=== PATIENT | male | born 1970 ===

== ENCOUNTER 2025-05-06 09:12 | Emergency (ER) | payer OTHER, SELFPAY ==
[2025-05-06 09:17] VITALS: BP 130/81
[2025-05-06 10:38] LABS: Urine Character Clear (Clear)
--- NOTE | 2025-05-06 11:17 | ED.GENMED ---
History of Present Illness
General
Chief Complaint: Back Pain
Source: patient
Time Seen by Provider: 05/06/25 11:07
History of Present Illness
History of Present Illness:
55-year-old male with past medical history of controlled hypertension and hyperlipidemia presenting to the emergency department for evaluation of left flank pain that began yesterday with relative sudden onset, severe, nonradiating lasted
approximately 1 to 2 hours and then resolved on its own, symptoms began again this morning with similar intensity associated with nausea but no vomiting, currently only about a 2 out of 10. Patient went to local urgent care but was directed to the
ER with concern for possible renal/ureteral colic. Patient did not take anything for symptoms prior to arrival. Denies any other symptoms at this time. Denies any fevers, chills, rigors, urinary frequency/urgency/dysuria or hematuria or bowel
changes. Patient notes that he did have a normal bowel movement this morning. Social history noncontributory.
Past History
Past History
ED Past Medical History: HTN and Hypercholesterolemia
ED Past Surgical History: Appendectomy and Tonsilectomy
Social History
Tobacco: Non-smoker
Alcohol: Occasional
Drug: None
Personal:
Living: with family
Review of Systems
Review of Systems
All Other Systems: ROS reviewed and negative except as documented in HPI and ROS
Phy Exam
Physical Exam
Physical Exam:
GENERAL: Alert , in no apparent distress
EYE: clear conjunctiva b/l
HEAD: NCAT
ENT: o/p clr, mmm.
CARDIAC: Regular rate and rhythm .
LUNGS: Clear breath sounds bilaterally, no acute respiratory distress, no wheezes/rales/rhonchi
ABDOMEN: Soft, without focal tenderness, no r/g, no cvat
NEUROLOGICAL: Alert and oriented
SKIN: Warm and dry, skin intact.
MUSCULOSKELETAL: No edema, well perfused.
PSYCH: Normal and appropriate interaction.
Scores
Heart Failure Risk
Heart Failure Risk Score: Not Applicable
Heart Score for Chest Pain Patients
STEMI patient?: Not applicable
Withdrawal Assessment of Alcohol
Withdrawal Assessment Completed?: Not applicable
Course
Orders/Labs/Results
Orders:
Orders
05/06/25 10:07
UA Reflex to Culture [Urinalysis Reflex To Culture] Urgent
Date Specimen was Collected: 05/06/25
Time Specimen was Collected: 10:06
Urine Microscopic Reflex Cult Urgent
05/06/25 11:16
CT Abd/pel Without Iv Or Oral Urgent
Comment:
Reason For Exam: left flank pain
05/06/25 11:20
Complete Blood Count/With Diff Urgent
Comprehensive Metabolic Panel Urgent
Lipase Urgent
Abnormal Lab Results
05/06/25 05/06/25
10:07 11:20
MPV 10.9 H fL
(7.4-10.4)
Absolute Neuts (auto) 7.4 H 10^3/uL
(1.4-6.5)
Neutrophils % 81.1 H %
(42.2-75.2)
Lymphocytes % 13.3 L %
(20.5-51.1)
Glucose 123 H mg/dl
(70-99)
ALT 51 H U/L
(0-50)
Urine Bacteria (Reflex) Few A
(Negative)
Urine Albumin (Reflex) 1+ A
(Neg - Trace)
05/06/25 11:20
05/06/25 11:20
Vital Signs
Initial and Last Documented VS:
Initial Vital Signs
Temp Pulse Resp BP Pulse Ox
98.4 F 86 18 130/81 97
05/06/25 09:17 05/06/25 09:17 05/06/25 09:17 05/06/25 09:17 05/06/25 09:17
Last Documented Vital Signs
Temp Pulse Resp BP Pulse Ox
98.6 F 87 18 118/76 96
05/06/25 12:52 05/06/25 12:52 05/06/25 12:52 05/06/25 12:52 05/06/25 12:52
MDM/Problems Addressed
Differential Diagnosis Includes:
Renal/Ureteral colic
UTI/Pyelo
Muscular back pain
Shingles
Less concern for osteo/neurogenic claudication
MDM/Problems Addressed:
55-year-old male presenting the ER for evaluation of suspected renal/ureteral colic. Symptoms over the last 24 hours, waxing and waning, currently a 2 out of 10. Patient declining anything for symptoms at this time. Hemodynamically stable.
Urinalysis obtained on arrival, and no microscopic hematuria noted. Will check labs and CT imaging. Disposition pending.
*Radiology
Radiology exam reviewed: radiology read reviewed
*Pulse Oximetry
SaO2: 97
Oxygen Mode of Delivery: Room air
Patient hypoxic: no
*Critical Care Note
Total Time (30-74mins, 75-104mins- exclusive of procedures): Not Applicable
Patient Management
Escalation/DeEscalation of care consider admission/obs:
CT scan without any intra-abdominal or pelvic findings. Pain remains well-controlled. At this time I do think it is reasonable for patient to be discharged home and outpatient follow-up with primary care provider. Discussed return precautions to
the ER. Prescription for Percocet and naproxen sent to pharmacy. Stable for discharge
ED Attending Note
-
Portions of this chart may have been created with voice recognition software.� Occasional wrong word or��sound alike� substitutions may have occurred due to the inherent limitations of voice recognition software.
Discharge Plan
Departure
Patient Disposition: Home (Routine Discharge)
Date of Disposition: 05/06/25
Time of Disposition: 12:57
Patient with high blood pressure during this ER visit?: No
Discharge Problem:
Acute left flank pain
Instructions: Low Back Pain (DC)
Prescriptions:
New
naproxen 500 mg tablet
500 mg PO BID PRN (Reason: Pain) Qty: 10 0RF
oxycodone-acetaminophen [Percocet] 5-325 mg tablet
1 tab PO Q6HPRN PRN (Reason: pain) Qty: 10 0RF
ondansetron 4 mg tablet,disintegrating
4 mg PO TIDPRN PRN (Reason: nausea/vomiting) Qty: 10 0RF
Referrals:
Sumi Pruett MD [Family Provider, Internal Medicine]
Interventions
Interventions:
*General Assessment Last Done: 05/06/25 11:33
*Neglect/Abuse Screening Last Done: 05/06/25 11:33
*ED COVID-19 Vaccine History Last Done: 05/06/25 11:33
*ED Influenza Vaccine History Last Done: 05/06/25 11:33
[facility] Fall Risk Assessment Tool Last Done: 05/06/25 11:33
*Risk Screen - Suicide (C-SSRS) Last Done: 05/06/25 11:33
*Nursing Disposition Last Done: 05/06/25 13:09
ED-Musculoskeletal Assessment Last Done: 05/06/25 11:35
Discharge Date and Time
Discharge Date/Time: 05/06/25 13:10
Print Language: GERMAN
[2025-05-06 11:21] VITALS: BMI 33.5
[2025-05-06 11:33] LABS: Urine Red Blood Cell 0-2 /HPF (0-2); Urine Squamous Cell 0-2 /LPF (Few)
[2025-05-06 11:39] LABS: Hematocrit 45.1 % (39.0-52.0); Hemoglobin 15.4 g/dL (13.0-18.0); Mean Corp Hgb Conc. 34.1 g/dL (33.0-37.0); Mean Corpuscular Volume 86.7 fL (80.0-94.0); Nucleated Red Blood Cells % 0 % (-); Platelet Count 219 10^3/uL (130-400); Red Cell Dist. Width 12.2 % (11.5-14.5)
[2025-05-06 11:59] LABS: ALT (SGPT) 51 U/L (0-50); AST (SGOT) 32 U/L (17-59); Albumin 5.0 g/dl (3.5-5.0); Alkaline Phosphatase 47 U/L (38-126); Blood Urea Nitrogen 16 mg/dl (9-20); Calcium 9.8 mg/dl (8.4-10.2); Carbon Dioxide 23 mmol/L (22-30); Chloride 101 mmol/L (98-107); Estimated Creatinine Clearance 117 ml/min; Glucose 123 mg/dl (70-99); Lipase 147 U/L (23-300); Potassium 5.0 mmol/L (3.5-5.1); Sodium 135 mmol/L (135-145); Total Protein 7.9 g/dl (6.3-8.2); eGFR > 60.00
[2025-05-06 12:52] VITALS: BP 118/76
== END 2025-05-06 13:10 | disposition home or self-care (01) ==
LOC: EMR 09:12
PROVIDERS: Physician Assistant Medical; Student in an Organized Health Care Education/Training Program; EMERGENCY PHYSICIAN Emergency Medicine; FAMILY PHYSICIAN Student in an Organized Health Care Education/Training Program
DX: R10.A2 Flank pain, left side (principal); I10 Essential (primary) hypertension; E78.00 Pure hypercholesterolemia, unspecified
CPT/HCPCS: 99284; 74176; 80053; 81003; 81015; 83690; 85025